=== PATIENT | male | born 2005 | race Caucasian/White ===

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

== ENCOUNTER 2025-09-20 06:30 | Outpatient (RCR) | payer MEDICAID, SELFPAY | END 2025-10-19 23:59 | disposition home or self-care (01) | LOC: SPT 06:30 | PROVIDERS: Visit Provider Pediatrics Adolescent Medicine | DX: M79.661 Pain in right lower leg (principal); M79.662 Pain in left lower leg; M25.50 Pain in unspecified joint | CPT/HCPCS: 97110; 97161 ==

== ENCOUNTER 2025-10-20 05:00 | Outpatient (RCR) | payer MEDICAID, SELFPAY | END 2025-11-19 23:59 | disposition home or self-care (01) | LOC: SPT 05:00 | PROVIDERS: Visit Provider Pediatrics Adolescent Medicine | DX: M79.661 Pain in right lower leg (principal); M79.662 Pain in left lower leg; M25.50 Pain in unspecified joint | CPT/HCPCS: 97110 ==